=== PATIENT | female | born 1950 | race Caucasian/White ===

== ENCOUNTER 2018-01-25 23:11 | Inpatient (IN) | payer OTHER, MEDICAID ==
[~2018-01-25] VITALS: Ht 165.1 cm; Wt 65.8 kg
[2018-01-26 00:38] LABS: BASOPHIL % 0.4 % (0-2); PLATELET COUNT 214 x10^3mcL (130-400); RED CELL DISTRIBUTION WIDTH 13.8 % (11.5-14.5)
[2018-01-26 01:03] LABS: CALCIUM 8.6 mg/dL (8.5-10.1); CARBON DIOXIDE 26.7 mmol/L (21-32); CHLORIDE SERUM 103 mmol/L (98-107); CREATININE SERUM 0.6 mg/dL (0.6-1.0); GFR1 > 60 mL/min; GLUCOSE SERUM 107 mg/dL (74-106); POTASSIUM SERUM 3.9 mmol/L (3.5-5.1); SODIUM SERUM 140 mmol/L (136-145)
[2018-01-26 01:16] LABS: ALBUMIN 3.8 g/dL (3.4-5.0); ALKALINE PHOSPHATASE 109 U/L (46-116); ALT/SGPT 37 U/L (14-59); AST/SGOT 23 U/L (15-37); T4(THYROXINE) 5.5 ug/dL (4.7-13.3); TOTAL PROTEIN, SERUM 7.8 g/dL (6.4-8.2)
[2018-01-26 02:42] LABS: CHOLESTEROL/HDL RATIO 3.9; MAGNESIUM 2.2 mg/dL (1.8-2.4); PHOSPHOROUS 3.8 mg/dL (2.5-4.9)
[2018-01-26 02:53] LABS: UA SPECIFIC GRAVITY <=1.005 (1.005-1.035); microscopic required? YES; urine erythrocyte NEGATIVE (NEGATIVE)
[2018-01-26 03:01] VITALS: BP 139/76
[2018-01-26 03:03] LABS: AMPHETAMINE QUAL UR NONE DETECTED (See below)
[2018-01-26 06:19] VITALS: BP 110/74
[2018-01-26 08:55] VITALS: BP 106/65
[2018-01-26 12:30] VITALS: BP 114/70
[2018-01-26 15:38] VITALS: BP 111/72
[2018-01-26 21:29] VITALS: BP 113/69
[2018-01-26] MEDS ORDERED: NAPROSYN500 MG PO (23:12)
[2018-01-26] MEDS ORDERED: LIPITOR80 MG PO (23:13)
[2018-01-26] MEDS ORDERED: CYMBALTA30 M1 PO (23:13)
[2018-01-26] MEDS ORDERED: AMITRIPTYLINE100 MG PO (23:14)
[2018-01-26] MEDS ORDERED: PREDNISONE20 MG PO (23:15)
[2018-01-26] MEDS ORDERED: IBUPROFEN800 MG PO (23:15)
[2018-01-27 05:18] VITALS: BP 124/82
[2018-01-27 06:45] LABS: BASOPHIL % 0.6 % (0-2); PLATELET COUNT 212 x10^3mcL (130-400); RED CELL DISTRIBUTION WIDTH 14.1 % (11.5-14.5)
[2018-01-27 08:33] LABS: GFR1 > 60 mL/min; MAGNESIUM 2.2 mg/dL (1.8-2.4)
[2018-01-27 08:48] LABS: CALCIUM 8.8 mg/dL (8.5-10.1); CARBON DIOXIDE 24.7 mmol/L (21-32); CREATININE SERUM 0.6 mg/dL (0.6-1.0); GLUCOSE SERUM 98 mg/dL (74-106)
[2018-01-27 09:04] LABS: CHLORIDE SERUM 103 mmol/L (98-107); POTASSIUM SERUM 4.1 mmol/L (3.5-5.1); SODIUM SERUM 139 mmol/L (136-145)
[2018-01-27 09:44] VITALS: BP 120/67
[2018-01-27 13:02] VITALS: BP 125/77
[2018-01-27 17:46] VITALS: BP 119/75
[2018-01-27 21:56] VITALS: BP 122/77
[2018-01-28 05:58] VITALS: BP 129/79
[2018-01-28 05:59] LABS: BASOPHIL % 0.4 % (0-2); PLATELET COUNT 206 x10^3mcL (130-400)
[2018-01-28 06:19] LABS: CALCIUM 8.2 mg/dL (8.5-10.1); CARBON DIOXIDE 24.7 mmol/L (21-32); CHLORIDE SERUM 103 mmol/L (98-107); CREATININE SERUM 0.6 mg/dL (0.6-1.0); GFR1 > 60 mL/min; GLUCOSE SERUM 97 mg/dL (74-106); POTASSIUM SERUM 3.7 mmol/L (3.5-5.1); SODIUM SERUM 137 mmol/L (136-145)
[2018-01-28 09:05] VITALS: BP 142/80
[2018-01-28] MEDS ORDERED: KEFLEX500 M1 PO (11:49)
[2018-01-28] MEDS ORDERED: COLACE100 MG PO (11:50)
[2018-01-28 12:44] VITALS: BP 142/80
[2018-01-28 12:45] VITALS: BP 145/77
== END 2018-01-28 16:25 | disposition home or self-care (01) | DRG 682 ==
LOC: ED 23:11 → DU 01-26 02:02
PROVIDERS: Emergency Medicine; Internal Medicine
DX: N17.0 Acute kidney failure with tubular necrosis (principal); G93.41 Metabolic encephalopathy; N39.0 Urinary tract infection, site not specified; R55 Syncope and collapse; I10 Essential (primary) hypertension; K59.00 Constipation, unspecified; G47.00 Insomnia, unspecified; M79.7 Fibromyalgia; M19.90 Unspecified osteoarthritis, unspecified site; R73.03 Prediabetes; D64.9 Anemia, unspecified; E78.5 Hyperlipidemia, unspecified; E78.1 Pure hyperglyceridemia; E03.9 Hypothyroidism, unspecified; Z96.653 Presence of artificial knee joint, bilateral
CPT/HCPCS: 83880; 97110-GP; 97116-GP; 97530-GP; J0696; J2405; J7030; J8597; Q0092; Q0162

== ENCOUNTER 2018-08-18 08:11 | Emergency (ER) | payer OTHER, MEDICAID ==
[~2018-08-18] VITALS: Ht 167.6 cm; Wt 66.7 kg
[~2018-08-18 08:11] MED LIST: AMITRIPTYLINE100 MG PO; COLACE100 MG PO; CYMBALTA30 M1 PO; IBUPROFEN800 MG PO; KEFLEX500 M1 PO; LIPITOR80 MG PO; NAPROSYN500 MG PO; PREDNISONE20 MG PO
[2018-08-18 08:15] VITALS: Ht 167.6 cm; Wt 66.7 kg
[2018-08-18 10:38] VITALS: BP 128/72
== END 2018-08-18 10:38 | disposition home or self-care (01) ==
LOC: ED 08:11
DX: J20.8 Acute bronchitis due to other specified organisms (principal); I10 Essential (primary) hypertension; G47.00 Insomnia, unspecified; M79.7 Fibromyalgia; M19.90 Unspecified osteoarthritis, unspecified site; Z96.653 Presence of artificial knee joint, bilateral
CPT/HCPCS: J1885; Q0092

== ENCOUNTER 2018-09-20 16:43 | Emergency (ER) | payer OTHER, MEDICAID ==
[~2018-09-20] VITALS: Ht 167.6 cm; Wt 67.1 kg
[2018-09-20 16:49] VITALS: Ht 167.6 cm; Wt 67.1 kg
[2018-09-20 18:53] VITALS: BP 151/83
== END 2018-09-20 18:53 | disposition home or self-care (01) ==
LOC: ED 16:43
DX: M19.90 Unspecified osteoarthritis, unspecified site (principal); M79.7 Fibromyalgia; I10 Essential (primary) hypertension
CPT/HCPCS: J1885; J7512

== ENCOUNTER 2020-06-30 09:12 | Emergency (ER) | payer OTHER, MEDICAID ==
[~2020-06-30] VITALS: Ht 167.6 cm; Wt 62.1 kg
[2020-06-30 09:23] VITALS: Ht 167.6 cm; Wt 62.1 kg
[2020-06-30 11:32] LABS: microscopic required? NO
[2020-06-30 12:05] LABS: CALCIUM 8.9 mg/dL (8.5-10.1); CARBON DIOXIDE 26.9 mmol/L (21-32); CHLORIDE SERUM 95 mmol/L (98-107); CREATININE SERUM 0.4 mg/dL (0.6-1.0); GFR1 > 60 mL/min; GLUCOSE SERUM 107 mg/dL (74-106); POTASSIUM SERUM 4.4 mmol/L (3.5-5.1); SODIUM SERUM 131 mmol/L (136-145)
[2020-06-30 12:07] LABS: UA SPECIFIC GRAVITY 1.015 (1.005-1.035); urine erythrocyte NEGATIVE (NEGATIVE)
[2020-06-30 12:10] LABS: ALBUMIN 3.9 g/dL (3.4-5.0); ALKALINE PHOSPHATASE 110 U/L (46-116); ALT/SGPT 33 U/L (14-59); AST/SGOT 19 U/L (15-37); BILIRUBIN TOTAL 0.3 mg/dL (0.20-1.00); LIPASE 112 IU/L (73-393); TOTAL PROTEIN, SERUM 6.8 g/dL (6.4-8.2)
[2020-06-30 12:11] LABS: BASOPHIL % 0.3 % (0.2-1.3); PLATELET COUNT 238 x10^3mcL (179-408)
[2020-06-30] MEDS ORDERED: LEADER MELATONIN5 MG PO (12:25)
[2020-06-30] MEDS ORDERED: NAPROSYN500 MG PO (12:25)
[2020-06-30] MEDS ORDERED: NOR10T PO (12:25)
[2020-06-30 12:50] VITALS: BP 120/72
== END 2020-06-30 12:50 | disposition home or self-care (01) ==
LOC: ED 09:12
PROVIDERS: Emergency Medicine
DX: B34.9 Viral infection, unspecified (principal); Z20.822 Contact with and (suspected) exposure to COVID-19; I10 Essential (primary) hypertension; M79.7 Fibromyalgia
CPT/HCPCS: J1885